=== PATIENT | female | born 1940 | race Caucasian/White ===

== ENCOUNTER 2022-10-08 14:51 | Inpatient (IN) | payer MEDICARE ==
[~2022-10-08] VITALS: Ht 172.7 cm; Wt 72.8 kg
[2022-10-08] MEDS ORDERED: PIPERACILLIN SODIUM/TAZOBACTAM 4.5 GM in NS (IVPB) 100 ML IV ONE (15:15)
--- NOTE | 2022-10-08 15:15 | ED General ---
General Chief Complaint: Trauma-Non Activation Stated Complaint: FALL; VOMITING Source of Information: Patient Exam Limitations: No Limitations History of Present Illness Date Seen by Provider: Oct 08, 2022 Time Seen by Provider: 15:00 Initial Comments Patient is an 81-year-old female who is currently on anticoagulation therapy who presents with generalized weakness fatigue, chills, and cough. Symptoms began 4 days ago and have gradually progressed over the past 48 hours. Patient did fall today while in the bathroom. She reports feeling weak and was found by family members on the bathroom floor. Patient denies hitting her head, loss of consciousness headache or neck pain. She denies any other injury or pain complaint. No other acute symptoms or complaints Timing/Duration: 3-4 Days Severity: Moderate Modifying Factors: improves with Other Associated Systoms: Other Allergies and Home Medications Allergies Coded Allergies: codeine (Verified Allergy, Unknown, 10/08/22) Patient Home Medication List Home Medication List Reviewed: Yes Review of Systems Review of Systems Constitutional: see HPI EENTM: see HPI Respiratory: see HPI Cardiovascular: see HPI Gastrointestinal: see HPI Genitourinary: see HPI Musculoskeletal: see HPI Skin: see HPI Psychiatric/Neurological: See HPI Hematologic/Lymphatic: See HPI Immunological/Allergic: see HPI All Other Systems Reviewed Negative Unless Noted: No Past Sjefmmw-Ekdtuf-Dfxyaw Hx Patient Social History Tobacco Use?: No Use of E-Cig and/or Vaping dev: No Substance use?: No Pt feels they are or have been: No Immunizations Up To Date Influenza Vaccine Up-to-Date: No; Not Current First/Initial COVID19 Vaccinat: Denies Past Medical History Surgery/Hospitalization HX: DM; High Cholesterol; HTN; DM- non insulin dependant; Bilateral Knee replacement Physical Exam Vital Signs Vital Signs - First Documented 10/08/22 14:59 Temp 37.1 Pulse 114 Resp 16 B/P (MAP) 157/64 (95) Pulse Ox 97 O2 Delivery Room Air Capillary Refill : Height, Weight, BMI Height: '" Weight: lbs. oz. kg; BMI Method: General Appearance: WD/WN, Other (Rigors, acutely ill-appearing) Eyes: Bilateral Eye Normal Inspection, Bilateral Eye PERRL, Bilateral Eye EOMI HEENT: PERRL/EOMI, Normal ENT Inspection, Pharynx Normal Neck: Full Range of Motion, Normal Inspection Respiratory: Normal Breath Sounds, Decreased Breath Sounds, Rales Cardiovascular: Tachycardia Gastrointestinal: Non Tender, Soft Neurologic/Psychiatric: Alert, Oriented x3 Focused Exam Sepsis Stage: Ruled Out Lactate Level 10/08/22 15:00: Lactic Acid Level 2.53*H Lactic Acid Level Laboratory Tests Test 10/08/22 15:00 Lactic Acid Level 2.53 MMOL/L (0.50-2.00) *H Progress/Results/Core Measures Suspected Sepsis SIRS Temperature: Pulse: Respiratory Rate: Laboratory Tests 10/08/22 15:00: White Blood Count 11.4H Blood Pressure / Mean: 10/08/22 15:00: Lactic Acid Level 2.53*H Laboratory Tests 10/08/22 15:00: Creatinine 0.89, Platelet Count 214, Total Bilirubin 0.5 Results/Orders Lab Results Laboratory Tests Test 10/08/22 15:00 10/08/22 15:40 Range/Units White Blood Count 11.4 H 4.3-11.0 10^3/uL Red Blood Count 5.18 H 3.80-5.11 10^6/uL Hemoglobin 14.9 11.5-16.0 g/dL Hematocrit 44 35-52 % Mean Corpuscular Volume 86 80-99 fL Mean Corpuscular Hemoglobin 29 25-34 pg Mean Corpuscular Hemoglobin Concent 34 32-36 g/dL Red Cell Distribution Width 13.6 10.0-14.5 % Platelet Count 214 130-400 10^3/uL Mean Platelet Volume 9.5 9.0-12.2 fL Immature Granulocyte % (Auto) 1 % Neutrophils (%) (Auto) 85 H 42-75 % Lymphocytes (%) (Auto) 5 L 12-44 % Monocytes (%) (Auto) 8 0-12 % Eosinophils (%) (Auto) 0 0-10 % Basophils (%) (Auto) 0 0-10 % Neutrophils # (Auto) 9.6 H 1.8-7.8 10^3/uL Lymphocytes # (Auto) 0.6 L 1.0-4.0 10^3/uL Monocytes # (Auto) 1.0 0.0-1.0 10^3/uL Eosinophils # (Auto) 0.1 0.0-0.3 10^3/uL Basophils # (Auto) 0.1 0.0-0.1 10^3/uL Immature Granulocyte # (Auto) 0.1 0.0-0.1 10^3/uL Neutrophils % (Manual) 88 % Lymphocytes % (Manual) 6 % Monocytes % (Manual) 5 % Eosinophils % (Manual) 1 % Sodium Level 142 135-145 MMOL/L Potassium Level 4.1 3.6-5.0 MMOL/L Chloride Level 102 98-107 MMOL/L Carbon Dioxide Level 25 21-32 MMOL/L Anion Gap 15 H 5-14 MMOL/L Blood Urea Nitrogen 11 7-18 MG/DL Creatinine 0.89 0.60-1.30 MG/DL Estimat Glomerular Filtration Rate 65 BUN/Creatinine Ratio 12 Glucose Level 220 H 70-105 MG/DL Lactic Acid Level 2.53 *H 0.50-2.00 MMOL/L Calcium Level 9.6 8.5-10.1 MG/DL Corrected Calcium 8.5-10.1 MG/DL Total Bilirubin 0.5 0.1-1.0 MG/DL Aspartate Amino Transf (AST/SGOT) 15 5-34 U/L Alanine Aminotransferase (ALT/SGPT) 12 0-55 U/L Alkaline Phosphatase 66 40-136 U/L Total Protein 7.4 6.4-8.2 GM/DL Albumin 4.7 H 3.2-4.5 GM/DL Influenza Type A (RT-PCR) Detected H Not Detecte Influenza Type B (RT-PCR) Not Detected Not Detecte SARS-CoV-2 RNA (RT-PCR) Not Detected Not Detecte Urine Color YELLOW Urine Clarity SLIGHTLY CLOUDY Urine pH 5.5 5-9 Urine Specific [place] 1.015 L 1.016-1.022 Urine Protein NEGATIVE NEGATIVE Urine Glucose (UA) 3+ H NEGATIVE Urine Ketones 1+ H NEGATIVE Urine Nitrite POSITIVE H NEGATIVE Urine Bilirubin NEGATIVE NEGATIVE Urine Urobilinogen 0.2 < = 1.0 MG/DL Urine Leukocyte Esterase NEGATIVE NEGATIVE Urine RBC (Auto) 2+ H NEGATIVE Urine RBC 10-25 H /HPF Urine WBC 0-2 /HPF Urine Squamous Epithelial Cells 5-10 /HPF Urine Crystals NONE /LPF Urine Bacteria LARGE H /HPF Urine Casts NONE /LPF Urine Mucus NEGATIVE /LPF Urine Culture Indicated NO My Orders Orders - SYMONE HAYNES DO Cbc With Automated Diff (10/08/22 15:09) Comprehensive Metabolic Panel (10/08/22 15:09) Blood Culture (10/08/22 15:09) Urinalysis (10/08/22 15:09) Urine Culture (10/08/22 15:09) Chest 1 View Ap/Pa Only (10/08/22 15:09) Ed Iv/Invasive Line Start (10/08/22 15:09) Ed Iv/Invasive Line Start (10/08/22 15:09) Vital Signs Adult Sepsis Patie Q15M (10/08/22 15:09) O2 (10/08/22 15:09) Lactic Acid Analyzer (10/08/22 15:09) Piperacillin Sodium/Tazobactam (Zosyn Vi (10/08/22 15:15) Covid 19 Inhouse Test (10/08/22 15:09) Influenza A And B By Pcr (10/08/22 15:09) Isolation Central Supply Req (10/08/22 15:09) Manual Differential (10/08/22 15:00) Acetaminophen Tablet/Caplet (Tylenol T (10/08/22 15:45) Ns Iv 1000 Ml (Sodium Chloride 0.9%) (10/08/22 16:00) Ekg Tracing (10/08/22 16:10) Ns Iv 1000 Ml (Sodium Chloride 0.9%) (10/08/22 16:30) Medications Given in ED Current Medications Medications Dose Ordered Sig/Zeeshan Route Start Time Stop Time Status Last Admin Dose Admin Acetaminophen 650 mg ONCE ONCE PO 10/08/22 15:45 10/08/22 15:46 DC 10/08/22 15:46 650 MG Piperacillin Sod/ Tazobactam Sod 4.5 gm/Sodium Chloride 100 ml @ 200 mls/hr ONCE ONCE IV 10/08/22 15:15 10/08/22 15:44 DC 10/08/22 15:36 200 MLS/HR Vital Signs/I&O 10/08/22 10/08/22 14:59 15:46 Temp 37.1 38.0 Pulse 114 Resp 16 B/P (MAP) 157/64 (95) Pulse Ox 97 O2 Delivery Room Air Capillary Refill : Departure Communication (Admissions) Chest x-ray: Cardiomegaly without pulmonary vascular congestion. Patient with acute viral syndrome secondary to influenza with generalized weakness resulting in fall without apparent injury. Concern for possible pneumonia not fully evident on chest x-ray, which may be a delayed finding. IV antibiotics IV fluids given. Patient is high risk of recurrent falls with grave injury given that she is on anticoagulation therapy and will require hospital admission. Patient accepted to [facility] per Dr. Cox. Impression Primary Impression: Influenza A Additional Impression: Generalized weakness Disposition: ADMITTED INPATIENT Condition: Stable Admissions Decision to Admit Reason: Admit from ER (General) Decision to Admit/Date: Oct 08, 2022 Time/Decision to Admit Time: 16:27 Departure-Patient Inst. Referrals: NO,LOCAL PHYSICIAN (PCP/Family) Primary Care Physician SYMONE HAYNES DO Oct 08, 2022 15:15
[2022-10-08 15:16] LABS: BASOPHILS # (AUTO) 0.1 10^3/uL (0.0-0.1); BASOPHILS % (AUTO) 0 % (0-10); EOSINOPHILS # (AUTO) 0.1 10^3/uL (0.0-0.3); EOSINOPHILS % (AUTO) 0 % (0-10); HEMATOCRIT 44 % (35-52); HEMOGLOBIN 14.9 g/dL (11.5-16.0); LYMPHOCYTES # (AUTO) 0.6 10^3/uL (1.0-4.0); LYMPHOCYTES % (AUTO) 5 % (12-44); MEAN CORPUSCULAR HEMOGLOBIN 29 pg (25-34); MEAN CORPUSCULAR HGB CONC 34 g/dL (32-36); MEAN CORPUSCULAR VOLUME 86 fL (80-99); MEAN PLATELET VOLUME 9.5 fL (9.0-12.2); MONOCYTES % (AUTO) 8 % (0-12); NEUTROPHILS # (AUTO) 9.6 10^3/uL (1.8-7.8); NEUTROPHILS % (AUTO) 85 % (42-75); PLATELET COUNT 214 10^3/uL (130-400); WHITE BLOOD COUNT 11.4 10^3/uL (4.3-11.0)
--- NOTE | 2022-10-08 15:24 | Diagnostic Imaging Report ---
INDICATION: cough. TECHNIQUE: Single view chest 3:13 PM. CORRELATION STUDY: None FINDINGS: Heart size enlarged. Vasculature within normal limits. Lungs demonstrate no infiltrate. Mildly prominent interstitial markings. IMPRESSION: 1. Borderline heart size without failure. Dictated by: Dictated on workstation # [id number]
[2022-10-08 15:35] LABS: ALANINE AMINOTRANSFERASE 12 U/L (0-55); ALBUMIN 4.7 GM/DL (3.2-4.5); ALKALINE PHOSPHATASE 66 U/L (40-136); BILIRUBIN,TOTAL 0.5 MG/DL (0.1-1.0); BUN/CREATININE RATIO 12; CALCIUM 9.6 MG/DL (8.5-10.1); CARBON DIOXIDE 25 MMOL/L (21-32); CHLORIDE 102 MMOL/L (98-107); CREATININE SERUM 0.89 MG/DL (0.60-1.30); GFR ESTIMATED 65; GLUCOSE 220 MG/DL (70-105); POTASSIUM 4.1 MMOL/L (3.6-5.0); SODIUM 142 MMOL/L (135-145); TOTAL PROTEIN 7.4 GM/DL (6.4-8.2)
[2022-10-08] MEDS ORDERED: ACETAMINOPHEN 325 MG TABLET PO ONE (15:45)
[2022-10-08 15:47] LABS: BILIRUBIN,URINE NEGATIVE (NEGATIVE); COLOR,URINE YELLOW; GLUCOSE, URINE (UA) 3+ (NEGATIVE); KETONES,URINE 1+ (NEGATIVE); LEUKOCYTE ESTERASE ,URINE NEGATIVE (NEGATIVE); NITRITE,URINE POSITIVE (NEGATIVE); PH,URINE 5.5 (5-9); PROTEIN,URINE NEGATIVE (NEGATIVE)
[2022-10-08 15:51] LABS: BACTERIA,URINE LARGE /HPF; CLARITY,URINE SLIGHTLY CLOUDY; WBC,URINE 0-2 /HPF
[2022-10-08] MEDS ORDERED: NS IV 1000 ML 1,000 ML IV SCH ×2 (16:00→16:30)
[2022-10-08 16:07] LABS: EOSINOPHILS % (MANUAL) 1 %; LYMPHOCYTES % (MANUAL) 6 %; MONOCYTES % (MANUAL) 5 %; NEUTROPHILS % (MANUAL) 88 %
[2022-10-08 18:20] VITALS: BP 119/59
[2022-10-08] MEDS ORDERED: ONDANSETRON 4 MG/2 ML (SDV) Z0FRAN IV PRN (18:45)
[2022-10-08] MEDS ORDERED: ANTACID SUSP 30 ML UDC (MYLANTA) PO PRN (18:45)
[2022-10-08] MEDS ORDERED: polyethylene glycoL POWDER 17 GM (MIRALAX) PACK PO PRN (18:45)
[2022-10-08] MEDS ORDERED: MELATONIN 3 MG TABLET PO PRN (18:45)
[2022-10-08 19:15] VITALS: BP 157/64
[2022-10-08] MEDS ORDERED: FLU QUAD HIGH DOSE 240 MCG/0.7 ML 2022-23 (FLUZONE) IM ONE (19:15)
[2022-10-08] MEDS ORDERED: RT-ALBUTEROL SULF 2.5 MG/3 ML PRE-MIX VIAL INH PRN (19:30)
[2022-10-08 19:44] VITALS: BP 130/67
[2022-10-08] MEDS: NS IV 1000 ML 1,000 ML IV SCH (19:53)
[2022-10-08] MEDS: ENOXAPARIN 40 MG/0.4 ML (LOVENOX) SYR SC SCH (21:21)
[2022-10-08 23:15] VITALS: BP 146/70
[2022-10-08] MEDS: PIPERACILLIN SODIUM/TAZOBACTAM 4.5 GM in NS (IVPB) 100 ML IV SCH (23:17)
[2022-10-08] MEDS: ACETAMINOPHEN 325 MG TABLET PO PRN (23:25)
[2022-10-09] MEDS: NS IV 1000 ML 1,000 ML IV SCH ×3 (03:02→18:06)
[2022-10-09 03:33] VITALS: BP 120/59
[2022-10-09 05:56] LABS: HEMATOCRIT 41 % (35-52); HEMOGLOBIN 13.5 g/dL (11.5-16.0); MEAN CORPUSCULAR HEMOGLOBIN 28 pg (25-34); MEAN CORPUSCULAR HGB CONC 33 g/dL (32-36); MEAN CORPUSCULAR VOLUME 87 fL (80-99); PLATELET COUNT 187 10^3/uL (130-400); WHITE BLOOD COUNT 8.3 10^3/uL (4.3-11.0)
[2022-10-09 06:04] LABS: POTASSIUM 3.7 MMOL/L (3.6-5.0)
[2022-10-09 06:05] LABS: CALCIUM 8.9 MG/DL (8.5-10.1)
[2022-10-09 06:09] LABS: CREATININE SERUM 0.97 MG/DL (0.60-1.30)
[2022-10-09] MEDS: PIPERACILLIN SODIUM/TAZOBACTAM 4.5 GM in NS (IVPB) 100 ML IV SCH ×3 (06:25→22:11)
[2022-10-09 07:21] VITALS: BP 147/67
[2022-10-09] MEDS: ACETAMINOPHEN 325 MG TABLET PO PRN (08:53)
--- NOTE | 2022-10-09 09:26 | History & Physical-Hospitalist ---
History of Present Illness HPI/Chief Complaint Patient is an 81-year-old female with past medical history of type 2 diabetes, hypertension, atrial fibrillation on chronic anticoagulation who presented to the emergency department due to vomiting and falls with generalized weakness. She is here visiting family for [place] and was in the bathroom vomiting when she fell to the floor. She states that this generalized feeling of being unwell and weak with fatigue has been going on for roughly 4 to 5 days. She has had a dry nonproductive cough as well. She reported chills to the emergency department but did deny those to me. She was tested for COVID and flu and was found to be influenza A positive. Imaging of her chest showed bilateral infiltrates she was admitted due to high risk of decompensation and injury from fall at home. This morning she reports that she is feeling better and she is eating breakfast. She states she has not yet had her flu vaccine this year but is interested in getting it prior to discharge. Source: patient Date Seen 10/09/22 Time Seen by a Provider: 09:17 Attending Physician Nathan Burdick MD PCP Admitting Physician: Aure Marmolejo MD Attending Physician: Aure Marmolejo MD Referring Physician Date of Admission Oct 08, 2022 at 18:38 Home Medications & Allergies Home Medications Reviewed patient Home Medication Reconciliation performed by pharmacy medication reconciliations dairy technician and/or nursing. Patients Allergies have been reviewed. Allergies Allergies Coded Allergies codeine (Verified Allergy, Unknown, 10/08/22) Past Rxobluf-Wflwrg-Xanyyi Hx Patient Social History Tobacco Use?: No Use of E-Cig and/or Vaping dev: No Substance use?: No Alcohol Use?: No Pt feels they are or have been: No Immunizations Up To Date First/Initial COVID19 Vaccinat: Denies Tetanus Booster (TDap): Unknown Hepatitis A: No Hepatitis B: No Current Status status: No status: No Advance Directives: No Communicates: Verbally Primary Language: Greek Preferred Spoken Language: Greek Sensory deficits: Vision impairment Implanted or Applied Medical D: None Review of Systems Constitutional: chills; No fever; malaise, weakness EENTM: no symptoms reported Respiratory: cough; No phlegm Cardiovascular: no symptoms reported Gastrointestinal: nausea, vomiting Genitourinary: no symptoms reported Musculoskeletal: muscle weakness Skin: no symptoms reported Psychiatric/Neurological: No Symptoms Reported Physical Exam Physical Exam Vital Signs Vital Signs - First Documented 10/08/22 10/08/22 10/09/22 14:59 19:15 07:57 Temp 37.1 Pulse 114 Resp 16 B/P (MAP) 157/64 (95) Pulse Ox 97 O2 Delivery Room Air O2 Flow Rate 0.00 FiO2 21 Capillary Refill : Less Than 3 Seconds Height, Weight, BMI Height: '" Weight: lbs. oz. kg; 24.40 BMI Method: General Appearance: No Apparent Distress, WD/WN, Thin HEENT: PERRL/EOMI, Moist Mucous Membranes Neck: Normal Inspection, Supple Respiratory: No Accessory Muscle Use, No Respiratory Distress, Other (coarse breath sounds bilaterally, no crackles or wheezing) Cardiovascular: Regular Rate, Rhythm, No JVD, No Murmur Gastrointestinal: Normal Bowel Sounds, Non Tender, Soft Extremity: Normal Capillary Refill, No Calf Tenderness, No Pedal Edema Neurologic/Psychiatric: Alert, Oriented x3, Normal Mood/Affect Skin: Normal Color, Warm/Dry Results Results/Procedures Labs Laboratory Tests 10/08/22 15:00 10/09/22 05:09 Patient resulted labs reviewed. Imaging: Reviewed Imaging Report Imaging [facility] [place] NAME[facility] REC#: [id number] PT STATUS: REG ER : 1940 PHYSICIAN: SYMONE HAYNES DO ADMIT DATE: 10/08/22/ER FS Signed Date of Exam:10/08/22 CHEST 1 VIEW AP/PA ONLY INDICATION: cough. TECHNIQUE: Single view chest 3:13 PM. CORRELATION STUDY: None FINDINGS: Heart size enlarged. Vasculature within normal limits. Lungs demonstrate no infiltrate. Mildly prominent interstitial markings. IMPRESSION: 1. Borderline heart size without failure. Dictated by: Dictated on workstation # [id number] Dict: 10/08/22 1523 Trans: 10/08/224 [facility] [id number] Interpreted by: CRYSTAL COWART DO Electronically signed by: CRYSTAL COWART DO 10/08/22 1624 Assessment/Plan Admission Diagnosis Influenza A Admission Status: Inpatient Order (span 2 midnights) Reason for Inpatient Admission: see below Assessment and Plan Influenza A Weakness Outside of window for Tamiflu Zosyn for likely secondary pneumonia given duration PT/OT Tylenol prn aches and fevers Zofran for nausea Supportive care Still fevering- keep in hospital at least another night NIDDMII fasting blood sugar 88 Hold home meds for now unless trends up A-fib Does not appear to be on any rate controlling medicine per med rec On anticoagulation so will continue HTN Appears to fill lisinopril- resume DVT ppx: Home anticoagulation Diagnosis/Problems Diagnosis/Problems (1) Influenza A Status: Acute (2) Generalized weakness Status: Acute (3) Non-insulin dependent type 2 diabetes mellitus Status: Chronic (4) Essential (primary) hypertension Status: Chronic (5) Atrial fibrillation Status: Chronic Qualifiers: Atrial fibrillation type: paroxysmal Qualified Codes: I48.0 - Paroxysmal atrial fibrillation (6) Chronic anticoagulation Status: Chronic AURE MARMOLEJO MD Oct 09, 2022 9:26 am
[2022-10-09] MEDS ORDERED: lisINopril 20 MG (PRINIVIL) TABLET PO ONE (10:00)
--- NOTE | 2022-10-09 10:13 | Occupational Therapy Eval ---
OT Evaluation-General/PLF Medical Diagnosis Admission Date Oct 08, 2022 at 18:38 Medical Diagnosis: Flu Onset Date: Oct 08, 2022 Therapy Diagnosis Therapy Diagnosis: Weakness, Decreased ADL skills Precautions Precautions/Isolations: Droplet Isolation, Fall Prevention Weight Bear Status Weight Bearing Restriction: Weight Bearing/Tolerated Referral Physician: Dr. Cox Referral Reason: Activity Tolerance, Self Care, Evaluation/Treatment, Strengthening/ROM Medical History Pertinent Medical History: DM, HTN Additional Medical History Bilateral knee replacements. Current History Pt. lives alone. Became ill and fell in her bathroom. Family found her. Pt. did not lose consciousness. Reviewed History: Yes Social History Home: Single Level Current Living Status: Alone Entry Into Home: Stairs With Railing Steps Into Home: 1 ADL-Prior Level of Function SCALE: Activities may be completed with or without assistive devices. 5-Wxiamxlpqm-ervtcjs completes the activity by him/herself with no assistance from a helper. 5-Set-up or Clean-up Assistance-helper sets up or cleans up; patient completes activity. [place] assists only prior to or following the activity. 4-Supervision or Touching Assistance-helper provides verbal cues and/or touching/steadying and/or contact guard assistance as patient completes activity. Assistance may be provided throughout the activity or intermittently. 3-Partial/Moderate Assistance-helper does LESS THAN HALF the effort. [place] lifts, holds or supports trunk or limbs, but provides less than half the effort. 2-Substantial/Maximal Assistance-helper does MORE THAN HALF the effort. [place] lifts or holds trunk or limbs and provides more than half the effort. 0-Cwrfydpft-dpegii does ALL the effort. Patient does none of the effort to complete the activity. Or, the assistance of 2 or more helpers is required for the patient to complete the activity. If activity was not attempted, code reason: 7-Patient Refused. 9-Not Applicable-not attempted and the patient did not perform the activity before the current illness, exacerbation or injury. 10-Not Attempted due to Environmental Limitations-(lack of equipment, weather restraints, etc.). 88-Not Attempted due to Medical Conditions or Safety Concerns. ADL PLOF Comments Pt. states that she typically is independent with daily skills. She does not use an assistive device. She lives alone. Self Care: Independent Functional Cognition: Independent DME/Equipment: Shower Drive Self: Yes OT Current Status Subjective No pain reported. Appearance Pt. in bed. She is alert and oriented. Mental Status/Objective Patient Orientation: Person, Place, Time, Situation Attachments: IV Current Upper Extremity ROM WFL ADL-Treatment Eating (QC): 5 (Set up- Pt.'s tray came while therapy in room. OT set it up for her. Pt. able to eat independently after set up.) On/Off Footwear (QC): 4 (Pt. able to bend over to doff/don slipper socks, but requires SBA and increased time. Pt. becomes SOA when doing so, but is unable to fully bring her feet up to her without bending over.) Toileting Hygiene (QC): 3 (Min assist to pull pants down effectively.) Other Treatments Pt. seen for co-treatment with PT due to fatigue/weakness, and needed skilled assist of two. Pt. transfers EOB with CGA. She is able to sit EOB, but does require CGA at times. She is able to brush her hair and wash her face when these items are handed to her. Pt. agrees to use the bathroom. Requires CGA/Min assist for sit-stand. OT guided IV and encouraged proper hand placement while PT assisted pt. and guided walker. Pt. very weak and does have one loss of balance while standing. Ambulates into bathroom and requires min assist to pull depend and pants down. Transferred to toilet. After toileting, pt. is able to don her own pants. Ambulated to sink and washed hands with CGA. Ambulated back to bed. Pt. would like to lay down instead of sitting up in chair. Transfers into bed with SBA. Breakfast tray arrives. OT sets this up for her. Pt. left with all needs met. Education OT Patient Education: Correct positioning, Modified ADL techniques, Progress toward Goal/Update tx plan, Purpose of tx/functional activities, Reviewed precautions, Rehab process, Transfer techniques Teaching Recipient: Patient Teaching Methods: Demonstration, Discussion Response to Teaching: Verbalize Understanding, Return Demonstration OT Short Term Goals Short Term Goals Time Frame: Oct 16, 2022 Eatin Oral hygiene: 5 Toileting hygiene: 5 Shower/bathe self: 3 Upper body dressin Lower body dressin Putting on/taking off footwear: 5 OT Usp Goals Usp Goals Time Frame: Oct 23, 2022 Eating (QC): 6 Oral Hygiene (QC): 6 Toileting Hygiene (QC): 6 Shower/Bathe Self (QC): 5 Upper Body Dressing (QC): 6 Lower Body Dressing (QC): 6 On/Off Footwear (QC): 6 Additional Goals: 1-Demonstrate ADL Tasks, 2-Verbalize Understanding, 3-ImproveStrength/[place] 1=Demonstrate adherence to instructed precautions during ADL tasks. 2=Patient will verbalize/demonstrate understanding of assistive devices/modifications for ADL. 3=Patient will improve strength/tolerance for activity to enable patient to perf orm ADL's. OT Education/Plan Problem List/Assessment Assessment: Decreased Activ Tolerance, Decreased UE Strength, Dependent Transfers, Impaired Bed Mobility, Impaired Funct Balance, Impaired I ADL's, Impaired Self-Care Skills Discharge Recommendations Plan/Recommendations: Continue POC Therapy Discharge Recommendati: Post Acute OT Equpiment Recommendations-D/C: Extended Bath Bench Treatment Plan/Plan of Care Treatment,Training & Education: Yes Patient would benefit from OT for education, treatment and training to promote independence in ADL's, mobility, safety and/or upper extremity function for ADL's. Plan of Care: ADL Retraining, Functional Mobility, UE Funct Exercise/Act Treatment Duration: Oct 23, 2022 Frequency: 3 times per week (3-5x/week) Estimated Hrs Per Day: .25 hour per day Agreement: Yes Rehab Potential: Good Time Start Time: 08:20 Stop Time: 08:40 DATE: Oct 09, 2022 Total Time Billed (hr/min): 20 Billed Treatment Time 1, EVM x 20minutes Co-treatment with PT. Please see above note for designated roles. CHRIS CAMPBELL OT Oct 09, 2022 10:13
[2022-10-09 11:08] VITALS: BP 136/63
--- NOTE | 2022-10-09 12:51 | Physical Therapy Evaluation ---
PT Evaluation-General Medical Diagnosis Admission Date Oct 08, 2022 at 18:38 Medical Diagnosis: Flu Onset Date: Oct 08, 2022 Therapy Diagnosis Therapy Diagnosis: weakness Precautions Precautions/Isolations: Droplet Isolation, Fall Prevention, Standard Precautions Weight Bear Status Right Lower Extremity: Right Full Weight Bearing Left Lower Extremity: Left Full Weight Bearing Referral Physician: Dr. Cox Reason for Referral: Evaluation/Treatment Medical History Pertinent Medical History: DM, HTN Additional Medical History (B) TKR, high cholesterol Current History To ED with weakness, fatigue, chills and cough. Fell at home, found by family. Flu (+) Reviewed History: Yes Social History Home: Single Level Current Living Status: Alone Entry Into Home: Stairs With Railing PT Steps Into Home: 1 Prior Prior Level of Function SCALE: Activities may be completed with or without assistive devices. 4-Jqhufwpunp-nfephvo completes the activity by him/herself with no assistance from a helper. 5-Set-up or Clean-up Assistance-helper sets up or cleans up; patient completes activity. [place] assists only prior to or following the activity. 4-Supervision or Touching Assistance-helper provides verbal cues and/or touching/steadying and/or contact guard assistance as patient completes activity. Assistance may be provided throughout the activity or intermittently. 3-Partial/Moderate Assistance-helper does LESS THAN HALF the effort. [place] lifts, holds or supports trunk or limbs, but provides less than half the effort. 2-Substantial/Maximal Assistance-helper does MORE THAN HALF the effort. [place] lifts or holds trunk or limbs and provides more than half the effort. 1-Expgquowk-ecmaot does ALL the effort. Patient does none of the effort to complete the activity. Or, the assistance of 2 or more helpers is required for the patient to complete the activity. If activity was not attempted, code reason: 7-Patient Refused. 9-Not Applicable-not attempted and the patient did not perform the activity before the current illness, exacerbation or injury. 10-Not Attempted due to Environmental Limitations-(lack of equipment, weather restraints, etc.). 88-Not Attempted due to Medical Conditions or Safety Concerns. Bed Mobility: 6 Transfers (B,C,W/C): 6 Gait: 6 Indoor Mobility (Ambulation): Independent Stairs: Independent PT Evaluation-Current Subjective Pt agreeable. Pain Numeric Pain Scale: 0-No Pain Location: No Pain Reported Objective Patient Orientation: Person, Place, Time, Situation ROM/Strength ROM Upper Extremities See OT ROM Lower Extremities WFL for mobility Strength Upper Extremities See OT Strength Lower Extremities Grossly 3+/5 Integumentary/Posture Integumentary See nurses' notes Posture Kyphotic Sensory Vision: Functional Hearing: Functional Transfers Roll Left to Right (QC): 5 Sit to Lying (QC): 5 Lying to Sitting/Side of Bed(Q: 5 Sit to Stand (QC): 4 Toilet Transfer (QC): 4 (steadying assist) Gait Does the Patient Walk?: Yes Mode of Locomotion: Walk Anticipated Mode of Locomotion: Walk Walk 10 feet (QC): 4 Gait Assistive Device: FWW Comments/Gait Description CGA, 1 LOB with CGA to correct Wheelchair Training Does the Pt Use a Wheelchair?: No Type of Wheelchair: N/A Balance Sitting Static: Normal Sitting Dynamic: Normal Standing Static: Fair Standing Dynamic: Fair Treatment Eval. Returned to bed with all needs met. Assessment/Needs Pt would benefit from skilled PT to improve functional strength and dynamic balance to allow safe return home alone. Rehab Potential: Good PT Short Term Goals Short Term Goals Time Frame: Oct 16, 2022 Roll Left & Right: 6 Sit to lyin Lying to sitting on side of be: 6 Sit to stand: 6 Chair/hdq-fl-gtnob transfer: 6 PT Usp Goals Usp Goals PT Irrigationist Designer Goals Time Frame: Oct 23, 2022 Roll Left & Right (QC): 6 Sit to Lying (QC): 6 Lying-Sitting on Side/Bed(QC): 6 Sit to Stand (QC): 6 Chair/Yvu-pf-Sdmll Xfer(QC): 6 Toilet Transfer (QC): 6 Car Transfer (QC): 6 Does the Patient Walk: Yes Walk 10 feet (QC): 6 Walk 50ft with 2 Turns (QC): 6 Walk 150 ft (QC): 6 Walking 10ft on Uneven Surface: 6 1 Step (curb) (QC): 6 4 Steps (QC): 9 12 Steps (QC): 9 Picking up an Object (QC): 6 Does the Pt use WC or Scooter?: No Wheel 50 feet with 2 turns (QC: 9 Type: N/A Wheel 150 feet: 9 Type: N/A LTGs established to allow safe return home alone PT Plan Problem List Problem List: Activity Tolerance, Functional Strength, Safety, Balance, Gait, Transfer, Bed Mobility Treatment/Plan Treatment Plan: Continue Plan of Care Treatment Plan: Bed Mobility, Education, Functional Activity Lakia, Functional Strength, Gait, Safety, Therapeutic Exercise, Transfers Treatment Duration: Oct 23, 2022 Frequency: 6 times per week Estimated Hrs Per Day: .25 hour per day Patient and/or Family Agrees t: Yes Time Time In: 819 Time Out: 839 DATE: Oct 09, 2022 Total Billed Treatment Time: 20 Total Billed Treatment 1, JOE IBARRA DPAbbie Oct 09, 2022 12:51
[2022-10-09] MEDS ORDERED: RIVA10TA PO (13:58)
[2022-10-09] MEDS ORDERED: LINA5TAB PO (14:02)
[2022-10-09] MEDS ORDERED: METF-399 PO (14:03)
[2022-10-09] MEDS ORDERED: LISI10TA25 PO (14:04)
[2022-10-09] MEDS ORDERED: EMPA25TA PO (14:04)
[2022-10-09] MEDS ORDERED: GLIM4TAB5 PO (14:05)
[2022-10-09] MEDS ORDERED: ACAR50TA4 PO (14:07)
[2022-10-09 16:21] VITALS: BP 115/53
[2022-10-09] MEDS: ENOXAPARIN 40 MG/0.4 ML (LOVENOX) SYR SC SCH (18:06)
[2022-10-09 20:04] VITALS: BP 135/54
[2022-10-09] MEDS: guaiFENesin/DM (ROBITUSSIN DM) 10 ML UDC PO PRN (21:33)
[2022-10-09 23:41] VITALS: BP 160/68
[2022-10-10] MEDS: NS IV 1000 ML 1,000 ML IV SCH (00:40)
[2022-10-10 04:00] VITALS: BP 140/60
[2022-10-10 05:45] LABS: HEMATOCRIT 39 % (35-52); MEAN CORPUSCULAR HEMOGLOBIN 29 pg (25-34); MEAN CORPUSCULAR HGB CONC 33 g/dL (32-36); MEAN CORPUSCULAR VOLUME 86 fL (80-99); MEAN PLATELET VOLUME 10.1 fL (9.0-12.2); PLATELET COUNT 148 10^3/uL (130-400); WHITE BLOOD COUNT 6.3 10^3/uL (4.3-11.0)
[2022-10-10 06:03] LABS: POTASSIUM 3.7 MMOL/L (3.6-5.0)
[2022-10-10 06:04] LABS: CALCIUM 8.3 MG/DL (8.5-10.1)
[2022-10-10 06:08] LABS: CREATININE SERUM 0.94 MG/DL (0.60-1.30)
[2022-10-10] MEDS: PIPERACILLIN SODIUM/TAZOBACTAM 4.5 GM in NS (IVPB) 100 ML IV SCH ×3 (06:09→23:27)
[2022-10-10 07:31] VITALS: BP 119/59
[2022-10-10] MEDS ORDERED: lisINopril 20 MG (PRINIVIL) TABLET PO SCH (09:00)
[2022-10-10] MEDS: RIVAROXABAN 10 MG TABLET (XARELTO) PO SCH (09:00)
--- NOTE | 2022-10-10 09:56 | Progress Note - Hospitalist ---
Subjective HPI/CC On Admission Date Seen by Provider: Oct 10, 2022 Patient is an 81-year-old female with past medical history of type 2 diabetes, hypertension, atrial fibrillation on chronic anticoagulation who presented to the emergency department due to vomiting and falls with generalized weakness. She is here visiting family for [place] and was in the bathroom vomiting when she fell to the floor. She states that this generalized feeling of being unwell and weak with fatigue has been going on for roughly 4 to 5 days. She has had a dry nonproductive cough as well. She reported chills to the emergency department but did deny those to me. She was tested for COVID and flu and was found to be influenza A positive. Imaging of her chest showed bilateral infiltrates she was admitted due to high risk of decompensation and injury from fall at home. This morning she reports that she is feeling better and she is eating breakfast. She states she has not yet had her flu vaccine this year but is interested in getting it prior to discharge. Subjective/Events-last exam Pt reports feeling worse today. Eating and drinking well but cough worse. Slightly more SOB. Discussed plan to repeat CXR and DC IVF. She reports Robitussin helped yesterday and would like another dose. Focused Exam Lactate Level 10/08/22 15:00: Lactic Acid Level 2.53*H 10/08/22 17:21: Lactic Acid Level 1.38 Objective Exam Vital Signs Vital Signs Date Time Temp Pulse Resp B/P (MAP) Pulse Ox O2 Delivery O2 Flow Rate FiO2 10/10/22 07:31 36.5 73 22 119/59 (79) 92 Room Air 10/09/22 07:57 0.00 10/08/22 19:15 21 Capillary Refill : Less Than 3 Seconds General Appearance: No Apparent Distress, Chronically ill Respiratory: No Respiratory Distress, Crackles (scant in bases) Cardiovascular: Regular Rate, Rhythm, No Murmur Gastrointestinal: Normal Bowel Sounds, Soft Neurologic/Psychiatric: Alert, Oriented x3 Results/Procedures Lab Laboratory Tests 10/10/22 04:55 Patient resulted labs reviewed. Imaging: Reviewed Imaging Report Assessment/Plan Assessment and Plan Assess & Plan/Chief Complaint Influenza A Weakness Outside of window for Tamiflu Zosyn for likely secondary pneumonia given duration PT/OT Tylenol prn aches and fevers Zofran for nausea Robitussin Supportive care Fever curve trending down- 24 hours fever free Repeat CXR with worsening cough and crackles Add IS DC IVF NIDDMII fasting blood sugar 116 Hold home meds for now unless trends up A-fib Does not appear to be on any rate controlling medicine per med rec- rate controlled On anticoagulation so will continue Xarelto HTN Well controlled Continue lisinopril DVT ppx: Home anticoagulation Diagnosis/Problems Diagnosis/Problems (1) Influenza A Status: Acute (2) Generalized weakness Status: Acute (3) Non-insulin dependent type 2 diabetes mellitus Status: Chronic (4) Essential (primary) hypertension Status: Chronic (5) Atrial fibrillation Status: Chronic Qualifiers: Atrial fibrillation type: paroxysmal Qualified Codes: I48.0 - Paroxysmal atrial fibrillation (6) Chronic anticoagulation Status: Chronic AURE MARMOLEJO MD Oct 10, 2022 09:56
--- NOTE | 2022-10-10 11:35 | Diagnostic Imaging Report ---
EXAMINATION: Chest 1 view HISTORY: Influenza COMPARISON: 10/08/2022 FINDINGS: The lungs are clear without edema or pneumonia. No pleural effusion or pneumothorax. Heart size is normal. IMPRESSION: 1. Clear lungs. Dictated by: Dictated on workstation # [id number]
[2022-10-10 12:06] VITALS: BP 144/70
[2022-10-10 15:52] VITALS: BP 183/80
[2022-10-10] MEDS: BENZOCAINE LOZENGES 1 EACH LOZENGE PO PRN ×2 (16:01→23:27)
[2022-10-10 19:50] VITALS: BP 161/72
[2022-10-10 23:23] VITALS: BP 144/67
[2022-10-11] VITALS (7 sets, daily range): BP systolic 130–172; BP diastolic 58–74
[2022-10-11 06:37] LABS: HEMATOCRIT 40 % (35-52); HEMOGLOBIN 13.2 g/dL (11.5-16.0); MEAN CORPUSCULAR HEMOGLOBIN 28 pg (25-34); MEAN CORPUSCULAR HGB CONC 33 g/dL (32-36); MEAN CORPUSCULAR VOLUME 85 fL (80-99); MEAN PLATELET VOLUME 10.3 fL (9.0-12.2); PLATELET COUNT 158 10^3/uL (130-400); WHITE BLOOD COUNT 5.6 10^3/uL (4.3-11.0)
[2022-10-11 06:49] LABS: CALCIUM 8.4 MG/DL (8.5-10.1); CREATININE SERUM 0.95 MG/DL (0.60-1.30); POTASSIUM 3.5 MMOL/L (3.6-5.0)
[2022-10-11] MEDS: PIPERACILLIN SODIUM/TAZOBACTAM 4.5 GM in NS (IVPB) 100 ML IV SCH (07:40)
[2022-10-11] MEDS ORDERED: AUGMENTIN 875 MG TAB (AMOXICILLIN/CLAVULANATE) PO SCH (08:00)
[2022-10-11] MEDS: lisINopril 20 MG (PRINIVIL) TABLET PO SCH (08:58)
[2022-10-11] MEDS: RIVAROXABAN 10 MG TABLET (XARELTO) PO SCH (08:58)
[2022-10-11] MEDS: BENZOCAINE LOZENGES 1 EACH LOZENGE PO PRN ×2 (08:58→20:23)
--- NOTE | 2022-10-11 10:22 | Physical Therapy Daily Note ---
PT Daily Note-Current Subjective Patient agrees to PT. No c/o at this time. Pain Section J - Health Conditions 1. Rarely or not at all 2. Occasionally 3. Frequently 4. Almost constantly 8. Unable to answer Pain Effect on Sleep: 1 Pain Interference with Therapy: 1 Pain Interference w/Day-to-Day: 1 Mental Status Patient Orientation: Normal For Age Attachments: IV Transfers SCALE: Activities may be completed with or without assistive devices. 4-Tmpfsqfnjr-pmfvbhv completes the activity by him/herself with no assistance from a helper. 5-Set-up or Clean-up Assistance-helper sets up or cleans up; patient completes activity. [place] assists only prior to or following the activity. 4-Supervision or Touching Assistance-helper provides verbal cues and/or touching/steadying and/or contact guard assistance as patient completes activity. Assistance may be provided throughout the activity or intermittently. 3-Partial/Moderate Assistance-helper does LESS THAN HALF the effort. [place] lifts, holds or supports trunk or limbs, but provides less than half the effort. 2-Substantial/Maximal Assistance-helper does MORE THAN HALF the effort. [place] lifts or holds trunk or limbs and provides more than half the effort. 8-Fwxqjrqni-uouuym does ALL the effort. Patient does none of the effort to complete the activity. Or, the assistance of 2 or more helpers is required for the patient to complete the activity. If activity was not attempted, code reason: 7-Patient Refused. 9-Not Applicable-not attempted and the patient did not perform the activity before the current illness, exacerbation or injury. 10-Not Attempted due to Environmental Limitations-(lack of equipment, weather restraints, etc.). 88-Not Attempted due to Medical Conditions or Safety Concerns. Lying to Sitting/Side of Bed(Q: 6 Sit to Stand (QC): 6 Chair/Tgb-mf-Pyqzp Xfer(QC): 6 Weight Bearing Right Lower Extremity: Right Full Weight Bearing Left Lower Extremity: Left Full Weight Bearing Gait Training Distance: 200' in room Walk 10 feet (QC): 6 Walk 50 ft with 2 Turns(QC): 6 Walk 150 ft (QC): 6 Gait Assistive Device: None safe and functional with no deviation Exercises Seated Therapy Exercises: Ankle pumps, Long arc quads Seated Reps: 15 Assessment Patient up in recliner with needs met. Plan dismissal from PT tomorrow after session due to independence. PT Short Term Goals Short Term Goals Time Frame: Oct 16, 2022 Roll Left & Right: 6 Sit to lyin Lying to sitting on side of be: 6 Sit to stand: 6 Chair/wzt-ht-ptedv transfer: 6 PT Senior Living Goals Senior Living Goals PT Dialysis Nurse Goals Time Frame: Oct 23, 2022 Roll Left & Right (QC): 6 Sit to Lying (QC): 6 Lying-Sitting on Side/Bed(QC): 6 Sit to Stand (QC): 6 Chair/Ojd-zh-Txrfo Xfer(QC): 6 Toilet Transfer (QC): 6 Car Transfer (QC): 6 Does the Patient Walk: Yes Walk 10 feet (QC): 6 Walk 50ft with 2 Turns (QC): 6 Walk 150 ft (QC): 6 Walking 10ft on Uneven Surface: 6 1 Step (curb) (QC): 6 4 Steps (QC): 9 12 Steps (QC): 9 Picking up an Object (QC): 6 Does the Pt use WC or Scooter?: No Wheel 50 feet with 2 turns (QC: 9 Type: N/A Wheel 150 feet: 9 Type: N/A PT Plan Treatment/Plan Treatment Plan: Continue Plan of Care Treatment Plan: Bed Mobility, Education, Functional Activity Lakia, Functional Strength, Gait, Safety, Therapeutic Exercise, Transfers Treatment Duration: Oct 23, 2022 Frequency: 6 times per week Estimated Hrs Per Day: .25 hour per day Patient and/or Family Agrees t: Yes Time Time In: 949 Time Out: 1000 DATE: Oct 11, 2022 Total Billed Treatment Time: 11 Total Billed Treatment 1 visit FA 11 min HUE COBIAN PT Oct 11, 2022 10:21
[2022-10-11] MEDS: guaiFENesin/DM (ROBITUSSIN DM) 10 ML UDC PO PRN (13:11)
--- NOTE | 2022-10-11 13:33 | Occupational Ther Daily Note ---
OT Current Status-Daily Note Subjective Pt alert, lying in bed. Pt anxious about physician discharging her to home today, stating that her son has her house [place] and he won't be off of work until 4. [place] assisted pt to find son's phone number and pt called son. Reported this to [facility]. Mental Status/Objective Patient Orientation: Person, Place, Time, Situation ADL-Treatment Therapy Code Descriptions/Definitions Functional [place] Measure: 0=Not Assessed/NA 4=Minimal Assistance 1=Total Assistance 5=Supervision or Setup 2=Maximal Assistance 6=Modified [place] 3=Moderate Assistance 7=Complete IndependenceSCALE: Activities may be completed with or without assistive devices. 1-Nvlszorkde-kccrvxd completes the activity by him/herself with no assistance from a helper. 5-Set-up or Clean-up Assistance-helper sets up or cleans up; patient completes activity. [place] assists only prior to or following the activity. 4-Supervision or Touching Assistance-helper provides verbal cues and/or touching/steadying and/or contact guard assistance as patient completes activity. Assistance may be provided throughout the activity or intermittently. 3-Partial/Moderate Assistance-helper does LESS THAN HALF the effort. [place] lifts, holds or supports trunk or limbs, but provides less than half the effort. 2-Substantial/Maximal Assistance-helper does MORE THAN HALF the effort. [place] lifts or holds trunk or limbs and provides more than half the effort. 5-Lyewttdma-rgzpmg does ALL the effort. Patient does none of the effort to complete the activity. Or, the assistance of 2 or more helpers is required for the patient to complete the activity. If activity was not attempted, code reason: 7-Patient Refused. 9-Not Applicable-not attempted and the patient did not perform the activity before the current illness, exacerbation or injury. 10-Not Attempted due to Environmental Limitations-(lack of equipment, weather restraints, etc.). 88-Not Attempted due to Medical Conditions or Safety Concerns. Other Treatment Pt stated that she was able to complete all ADLs tasks by self and would not complete any OOB activities. Pt stated that she mostly uses microwave to cook with and that she has a walk-in shower. After session, pt lying in bed with call light/phone in reach. All needs met in room. OT Short Term Goals Short Term Goals Time Frame: Oct 16, 2022 Eatin Oral hygiene: 5 Toileting hygiene: 5 Shower/bathe self: 3 Upper body dressin Lower body dressin Putting on/taking off footwear: 5 OT Mcc Goals Mcc Goals Time Frame: Oct 23, 2022 Eating (QC): 6 Oral Hygiene (QC): 6 Toileting Hygiene (QC): 6 Shower/Bathe Self (QC): 5 Upper Body Dressing (QC): 6 Lower Body Dressing (QC): 6 On/Off Footwear (QC): 6 Additional Goals: 1-Demonstrate ADL Tasks, 2-Verbalize Understanding, 3-Impro veStrength/[place]akia 1=Demonstrate adherence to instructed precautions during ADL tasks. 2=Patient will verbalize/demonstrate understanding of assistive devices/modifications for ADL. 3=Patient will improve strength/tolerance for activity to enable patient to perform ADL's. OT Education/Plan Discharge Recommendations Plan/Recommendations: Continue POC Treatment Plan/Plan of Care Patient would benefit from OT for education, treatment and training to promote independence in ADL's, mobility, safety and/or upper extremity function for ADL's. Plan of Care: ADL Retraining, Functional Mobility, UE Funct Exercise/Act Treatment Duration: Oct 23, 2022 Frequency: 3 times per week (3-5x/week) Estimated Hrs Per Day: .25 hour per day Agreement: Yes Rehab Potential: Good Time Start Time: 11:00 Stop Time: 11:08 DATE: Oct 11, 2022 Total Time Billed (hr/min): 8 Billed Treatment Time 1 visit-FA 1 (8 min) JANET MCKEON Oct 11, 2022 13:33
--- NOTE | 2022-10-11 14:28 | Progress Note - Hospitalist ---
Subjective HPI/CC On Admission Date Seen by Provider: Oct 11, 2022 Time Seen by Provider: 11:05 Patient is an 81-year-old female with past medical history of type 2 diabetes, hypertension, atrial fibrillation on chronic anticoagulation who presented to the emergency department due to vomiting and falls with generalized weakness. She is here visiting family for [place] and was in the bathroom vomiting when she fell to the floor. She states that this generalized feeling of being unwell and weak with fatigue has been going on for roughly 4 to 5 days. She has had a dry nonproductive cough as well. She reported chills to the emergency department but did deny those to me. She was tested for COVID and flu and was found to be influenza A positive. Imaging of her chest showed bilateral infiltrates she was admitted due to high risk of decompensation and injury from fall at home. This morning she reports that she is feeling better and she is eating breakfast. She states she has not yet had her flu vaccine this year but is interested in getting it prior to discharge. Subjective/Events-last exam She is feeling better today. She does not think she can get a ride home. I was called after seeing the patient and informed that she now has nausea and vomiting. Focused Exam Lactate Level 10/08/22 15:00: Lactic Acid Level 2.53*H 10/08/22 17:21: Lactic Acid Level 1.38 Objective Exam Vital Signs Vital Signs Date Time Temp Pulse Resp B/P (MAP) Pulse Ox O2 Delivery O2 Flow Rate FiO2 10/11/22 13:06 93 Room Air 10/11/22 12:46 37.0 73 10/11/22 11:08 16 130/63 (85) 10/11/22 03:24 0.00 0.00 10/08/22 19:15 21 Capillary Refill : Less Than 3 Seconds General Appearance: No Apparent Distress, WD/WN Respiratory: No Respiratory Distress, Crackles Cardiovascular: Regular Rate, Rhythm, No Murmur Gastrointestinal: Normal Bowel Sounds, Soft Extremity: Normal Inspection, No Pedal Edema Neurologic/Psychiatric: Alert, Normal Mood/Affect Skin: Normal Color, Warm/Dry Results/Procedures Lab Laboratory Tests 10/11/22 05:34 Patient resulted labs reviewed. Imaging: Reviewed Imaging Report Assessment/Plan Assessment and Plan Assess & Plan/Chief Complaint Influenza A Weakness Nausea and vomiting Outside of window for Tamiflu Transitioned to Augmentin, switch to Omnicef due to nausea Zofran as needed PT/OT NIDDMII Holding home meds, well controlled A-fib Xarelto Not on rate/rhythm control meds HTN Well controlled Continue lisinopril DVT ppx: already receiving therapeutic anticoagulation Diagnosis/Problems Diagnosis/Problems (1) Influenza A Status: Acute (2) Generalized weakness Status: Acute (3) Non-insulin dependent type 2 diabetes mellitus Status: Chronic (4) Atrial fibrillation Status: Chronic Qualifiers: Atrial fibrillation type: paroxysmal Qualified Codes: I48.0 - Paroxysmal atrial fibrillation (5) Chronic anticoagulation Status: Chronic (6) Essential (primary) hypertension Status: Chronic RUTH YOO MD Oct 11, 2022 14:28
[2022-10-11] MEDS: CEFDINIR 300 MG (OMNICEF) CAP PO SCH (20:20)
[2022-10-12 03:21] VITALS: BP 117/58
[2022-10-12 06:17] LABS: HEMATOCRIT 41 % (35-52); HEMOGLOBIN 13.8 g/dL (11.5-16.0); MEAN CORPUSCULAR HEMOGLOBIN 29 pg (25-34); MEAN CORPUSCULAR HGB CONC 34 g/dL (32-36); MEAN CORPUSCULAR VOLUME 85 fL (80-99); MEAN PLATELET VOLUME 9.7 fL (9.0-12.2); PLATELET COUNT 162 10^3/uL (130-400)
[2022-10-12 06:36] LABS: CALCIUM 8.6 MG/DL (8.5-10.1); CREATININE SERUM 0.84 MG/DL (0.60-1.30); POTASSIUM 3.2 MMOL/L (3.6-5.0)
[2022-10-12 07:48] VITALS: BP 111/57
[2022-10-12] MEDS: CEFDINIR 300 MG (OMNICEF) CAP PO SCH (08:26)
[2022-10-12] MEDS: RIVAROXABAN 10 MG TABLET (XARELTO) PO SCH (08:26)
[2022-10-12] MEDS: lisINopril 20 MG (PRINIVIL) TABLET PO SCH (08:26)
--- NOTE | 2022-10-12 10:38 | Physical Therapy Daily Note ---
PT Daily Note-Current Subjective Patient agrees to PT. C/o of not feeling well on this date. Pain Section J - Health Conditions 1. Rarely or not at all 2. Occasionally 3. Frequently 4. Almost constantly 8. Unable to answer Pain Effect on Sleep: 1 Pain Interference with Therapy: 1 Pain Interference w/Day-to-Day: 1 Mental Status Patient Orientation: Normal For Age Transfers SCALE: Activities may be completed with or without assistive devices. 4-Jcqvqudqsr-wiamnar completes the activity by him/herself with no assistance from a helper. 5-Set-up or Clean-up Assistance-helper sets up or cleans up; patient completes activity. [place] assists only prior to or following the activity. 4-Supervision or Touching Assistance-helper provides verbal cues and/or touching/steadying and/or contact guard assistance as patient completes a ctivity. Assistance may be provided throughout the activity or intermittently. 3-Partial/Moderate Assistance-helper does LESS THAN HALF the effort. [place] lifts, holds or supports trunk or limbs, but provides less than half the effort. 2-Substantial/Maximal Assistance-helper does MORE THAN HALF the effort. [place] lifts or holds trunk or limbs and provides more than half the effort. 8-Ayioxudtx-oeoktj does ALL the effort. Patient does none of the effort to complete the activity. Or, the assistance of 2 or more helpers is required for the patient to complete the activity. If activity was not attempted, code reason: 7-Patient Refused. 9-Not Applicable-not attempted and the patient did not perform the activity before the current illness, exacerbation or injury. 10-Not Attempted due to Environmental Limitations-(lack of equipment, weather restraints, etc.). 88-Not Attempted due to Medical Conditions or Safety Concerns. Sit to Stand (QC): 6 Chair/Qhu-kg-Hrkvh Xfer(QC): 6 Toilet Transfer (QC): 6 Weight Bearing Right Lower Extremity: Right Full Weight Bearing Left Lower Extremity: Left Full Weight Bearing Gait Training Distance: 150' in room Walk 10 feet (QC): 6 Walk 50 ft with 2 Turns(QC): 6 Walk 150 ft (QC): 6 Gait Assistive Device: None safe and functional with on deviation or LOB Assessment Patient remains up in recliner with needs met. Patient continued to c/o cough and nausea. RN is aware PT Short Term Goals Short Term Goals Time Frame: Oct 16, 2022 Roll Left & Right: 6 Sit to lyin Lying to sitting on side of be: 6 Sit to stand: 6 Chair/guw-yr-wqwev transfer: 6 PT [employer] Boat Captain Goals [place] Boat Captain Goals PT Half-Way Goals Time Frame: Oct 23, 2022 Roll Left & Right (QC): 6 Sit to Lying (QC): 6 Lying-Sitting on Side/Bed(QC): 6 Sit to Stand (QC): 6 Chair/Wne-gi-Iuzom Xfer(QC): 6 Toilet Transfer (QC): 6 Car Transfer (QC): 6 Does the Patient Walk: Yes Walk 10 feet (QC): 6 Walk 50ft with 2 Turns (QC): 6 Walk 150 ft (QC): 6 Walking 10ft on Uneven Surface: 6 1 Step (curb) (QC): 6 4 Steps (QC): 9 12 Steps (QC): 9 Picking up an Object (QC): 6 Does the Pt use WC or Scooter?: No Wheel 50 feet with 2 turns (QC: 9 Type: N/A Wheel 150 feet: 9 Type: N/A PT Plan Treatment/Plan Treatment Plan: Continue Plan of Care Treatment Plan: Bed Mobility, Education, Functional Activity Lakia, Functional Strength, Gait, Safety, Therapeutic Exercise, Transfers Treatment Duration: Oct 23, 2022 Frequency: 6 times per week Estimated Hrs Per Day: .25 hour per day Patient and/or Family Agrees t: Yes Time Time In: 900 Time Out: 914 DATE: Oct 12, 2022 Total Billed Treatment Time: 14 Total Billed Treatment 1 visit FA 14 min HUE COBIAN PT Oct 12, 2022 10:38
--- NOTE | 2022-10-12 11:21 | Occupational Ther Daily Note ---
OT Current Status-Daily Note Subjective Pt alert, sitting in recliner. Pt asking when she gets to leave for home. Referred pt to ask nrsg. Pt agrees to therapy. No c/o pain. Mental Status/Objective Patient Orientation: Person, Place, Time, Situation Attachments: IV ADL-Treatment Pt ambulates without AD to bathroom. Pt is unsteady though is able right self and places hand on wall. Pt independent with toileting and standing at sink for oral care. After therapy, pt sitting in recliner with call light/phone in reach. All needs met in room. Therapy Code Descriptions/Definitions Functional Blanding Measure: 0=Not Assessed/NA 4=Minimal Assistance 1=Total Assistance 5=Supervision or Setup 2=Maximal Assistance 6=Modified Blanding 3=Moderate Assistance 7=Complete IndependenceSCALE: Activities may be completed with or without assistive devices. 9-Zhcuhkpxiz-gadebhk completes the activity by him/herself with no assistance f rom a helper. 5-Set-up or Clean-up Assistance-helper sets up or cleans up; patient completes activity. [place] assists only prior to or following the activity. 4-Supervision or Touching Assistance-helper provides verbal cues and/or touching/steadying and/or contact guard assistance as patient completes activity. Assistance may be provided throughout the activity or intermittently. 3-Partial/Moderate Assistance-helper does LESS THAN HALF the effort. [place] lifts, holds or supports trunk or limbs, but provides less than half the effort. 2-Substantial/Maximal Assistance-helper does MORE THAN HALF the effort. [place] lifts or holds trunk or limbs and provides more than half the effort. 4-Nyqysjdmb-kjhkjh does ALL the effort. Patient does none of the effort to complete the activity. Or, the assistance of 2 or more helpers is required for the patient to complete the activity. If activity was not attempted, code reason: 7-Patient Refused. 9-Not Applicable-not attempted and the patient did not perform the activity before the current illness, exacerbation or injury. 10-Not Attempted due to Environmental Limitations-(lack of equipment, weather restraints, etc.). 88-Not Attempted due to Medical Conditions or Safety Concerns. Oral Hygiene (QC): 6 Toileting Hygiene (QC): 6 Toilet Transfer (QC): 6 OT Short Term Goals Short Term Goals Time Frame: Oct 16, 2022 Eatin Oral hygiene: 5 Toileting hygiene: 5 Shower/bathe self: 3 Upper body dressin Lower body dressin Putting on/taking off footwear: 5 OT Tea Blender Goals Tea Blender Goals Time Frame: Oct 23, 2022 Eating (QC): 6 Oral Hygiene (QC): 6 Toileting Hygiene (QC): 6 Shower/Bathe Self (QC): 5 Upper Body Dressing (QC): 6 Lower Body Dressing (QC): 6 On/Off Footwear (QC): 6 Additional Goals: 1-Demonstrate ADL Tasks, 2-Verbalize Understanding, 3- ImproveStrength/[place] 1=Demonstrate adherence to instructed precautions during ADL tasks. 2=Patient will verbalize/demonstrate understanding of assistive devices/modifications for ADL. 3=Patient will improve strength/tolerance for activity to enable patient to perform ADL's. OT Education/Plan Problem List/Assessment Assessment: Impaired Funct Balance Discharge Recommendations Plan/Recommendations: Continue POC Treatment Plan/Plan of Care Patient would benefit from OT for education, treatment and training to promote independence in ADL's, mobility, safety and/or upper extremity function for ADL's. Plan of Care: ADL Retraining, Functional Mobility, UE Funct Exercise/Act Treatment Duration: Oct 23, 2022 Frequency: 3 times per week (3-5x/week) Estimated Hrs Per Day: .25 hour per day Agreement: Yes Rehab Potential: Good Time Start Time: 10:56 Stop Time: 11:08 DATE: Oct 12, 2022 Total Time Billed (hr/min): 12 Billed Treatment Time 1 visit-ADL 1 (12 min) JANET MCKEON Oct 12, 2022 11:21
[2022-10-12 11:33] VITALS: BP 134/60
[2022-10-12] MEDS ORDERED: LISI10TA25 PO (11:55)
[2022-10-12] MEDS ORDERED: METF-399 PO (11:55)
[2022-10-12] MEDS ORDERED: GLIM4TAB5 PO (11:55)
[2022-10-12] MEDS ORDERED: ACAR50TA4 PO (11:55)
[2022-10-12] MEDS ORDERED: RIVA10TA PO (11:59)
[2022-10-12] MEDS ORDERED: LINA5TAB PO (11:59)
[2022-10-12] MEDS ORDERED: EMPA25TA PO (11:59)
[2022-10-12] MEDS ORDERED: OMEG100032 PO (12:00)
[2022-10-12] MEDS ORDERED: ACET-2267 PO (12:02)
[2022-10-12] MEDS ORDERED: CEFD300C3 PO (13:54)
[2022-10-12] MEDS ORDERED: LISI20TA26 PO (13:54)
--- NOTE | 2022-10-12 14:00 | Discharge Summary ---
Discharge Summary Reconcile Patient Problems Problems Reviewed?: Yes Instructions for Patient Via [facility] [employer], Assessment/Instructions See instructions Physician to follow Patient: Gennaro Discharge Diet for Home: No Restrictions Hospital Course Date of Admission: Oct 08, 2022 at 18:38 Admission Diagnosis : Influenza A Family Physician/Provider: Nathan Burdick MD Date of Discharge: 10/12/22 Discharge Diagnosis: Influenza A, debility Hospital Course: Cheryl Vazquez is an 81 year old female with PMH HTN, T2DM, AFib, who was admitted with influenza A. She was treated supportively. She was given antibiotics for a UTI. She will complete a course of Omnicef as an outpatient. She was debilitated and worked with therapy. She was set up with home health care. She should follow up with her PCP in about a week. She was discharged home in stable condition. Labs and Pending Lab Test: Laboratory Tests 10/12/22 06:05: White Blood Count 8.0, Red Blood Count 4.81, Hemoglobin 13.8, Hematocrit 41, Mean Corpuscular Volume 85, Mean Corpuscular Hemoglobin 29, Mean Corpuscular Hemoglobin Concent 34, Red Cell Distribution Width 13.4, Platelet Count 162, Mean Platelet Volume 9.7, Sodium Level 138, Potassium Level 3.2L, Chloride Level 104, Carbon Dioxide Level 24, Anion Gap 10, Blood Urea Nitrogen 7, Creatinine 0.84, Estimat Glomerular Filtration Rate 70, BUN/Creatinine Ratio 8, Glucose Level 165H, Calcium Level 8.6 Microbiology 10/08/22 Urine Culture - Final, Complete Klebsiella pneumoniae 10/08/22 Blood Culture - Preliminary, Resulted No growth Home Meds Active Cefdinir 300 Mg Capsule 300 Mg PO BID 5 Days Lisinopril 20 Mg Tablet 20 Mg PO DAILY 30 Days Reported Tylenol Extra Strength (Acetaminophen) 500 Mg Tablet 500 Mg PO Q8H PRN Fish Oil 1,000 mg Softgel (Sutton-3/Dha/Epa/Fish Oil) 1,000 Mg (120 Mg-180 Mg) Capsule 2,000 Mg PO DAILY TAKES 2 (100MG) CAPS Xarelto (Rivaroxaban) 10 Mg Tablet 10 Mg PO DAILY Tradjenta (Linagliptin) 5 Mg Tablet 5 Mg PO DAILY Jardiance (Empagliflozin) 25 Mg Tablet 25 Mg PO DAILY Metformin HCl 1,000 Mg Tablet 1,000 Mg PO BID Glimepiride 4 Mg Tablet 4 Mg PO DAILY Acarbose 50 Mg Tablet 50 Mg PO DAILY Patient Allergies: Coded Allergies: codeine (Verified Allergy, Unknown, 10/08/22) Home Health Need/Face to Face Date of Face to Face: Oct 12, 2022 Clinical Findings: Generalized weakness and fatigue, Instability, Muscle weakness, Unsteady gait I have seen Pt [id number]: Yes Discharged To: Home Diagnosis/Conditions: Influenza Debility HTN T2DM AFib Problems/Diagnosis/Condition: (1) Influenza A (2) Essential (primary) hypertension (3) Atrial fibrillation (4) Non-insulin dependent type 2 diabetes mellitus (5) Generalized weakness Patient is Homebound due to: Arabella fall risk due to instabilty, Muscle weakness Homebound Status Due to the above stated illness, injury or surgical procedure (medical condition or diagnosis) and associated clinical findings, the patient is homebound because of his/her inability to leave home except with aid of a supportive device and/or person AND leaving the home requires a considerable and taxing effort or is medically contraindicated. Pt req the following assistanc: Aid of another person Home Health Nursing Orders Home Health Services Order: Nursing Services, Micro Computer Specialist-Evaluate & Treat, Physical Therapy-Evaluate & Treat Home Health Infusion Therapy Line Start Date: Oct 08, 2022 Therapy Orders Therapy Orders: OT (must have SN or PT order), Physical Therapy Therapy Specific Orders: Eval assistive deivces, Teach enviro modifications/safety, Gait training, Increase strength/endurance Certify Stmt I certify that this patient is under my care and that I, a nurse practitioner or a physician; a costumer assistant working with me, had a face to face encounter that - meets the physician face to face encounter requirements with this patient as dated. Discharge Physical Exam General: Alert, No Acute Distress HEENT: Atraumatic, EOMI, Mucous Memb Moist/[place] Lungs: Clear to Auscultation, Normal Air Movement Heart: Regular Rate, No Murmurs Abdomen: Soft, No Tenderness Extremities: No Edema, No Tenderness/Swelling Skin: No Rashes, No Significant Lesion Neuro: Normal Speech, Normal Tone Psych/Mental Status: Mental Status NL RUTH YOO MD Oct 12, 2022 14:00
[2022-10-12 15:51] VITALS: BP 134/60
== END 2022-10-12 15:45 | disposition home health service (06) | DRG 194 ==
LOC: ER FS 14:54 → 4TH 18:38
PROVIDERS: ADMIT Family Medicine; ATTEND Internal Medicine
DX: J10.1 Influenza due to other identified influenza virus with other respiratory manifestations (principal); N39.0 Urinary tract infection, site not specified; I10 Essential (primary) hypertension; E11.9 Type 2 diabetes mellitus without complications; R53.1 Weakness; R53.81 Other malaise; Z66 Do not resuscitate; Z79.01 Long term (current) use of anticoagulants; R11.2 Nausea with vomiting, unspecified; I48.0 Paroxysmal atrial fibrillation; Z20.822 Contact with and (suspected) exposure to COVID-19
CPT/HCPCS: 36415; 71045; 80048; 80053; 81000; 83605; 85007; 85027; 87040; 87077; 87088; 87186; 87636; 93005; 94760; 96365